=== PATIENT | female | born 1955 | race Caucasian/White ===

== ENCOUNTER → 2018-04-08 | Outpatient (CLI) | payer BC | END | disposition home or self-care (01) | LOC: PLD 13:31 → LAB SHORT 13:31 | DX: D03.71 Melanoma in situ of right lower limb, including hip (principal) | CPT/HCPCS: 88305 ==

== ENCOUNTER → 2018-04-23 | Outpatient (CLI) | payer BC | LOC: LAB SHORT 08:02 → PLD 08:02 | DX: D03.71 Melanoma in situ of right lower limb, including hip (principal) | CPT/HCPCS: 88305 ==

== ENCOUNTER → 2019-01-27 | Outpatient (CLI) | payer BC | END | disposition home or self-care (01) | LOC: LAB SHORT 08:45 → LAB 08:45 | DX: B82.9 Intestinal parasitism, unspecified (principal) | CPT/HCPCS: 87015; 87045; 87046; 87177; 87205; 87209; 87493; 87899 ==

== ENCOUNTER → 2020-01-06 | Outpatient (CLI) | payer MEDICARE | LOC: LAB SHORT 11:20 → PLD 11:20 | DX: D22.71 Melanocytic nevi of right lower limb, including hip (principal); L91.8 Other hypertrophic disorders of the skin; L81.8 Other specified disorders of pigmentation | CPT/HCPCS: 88305 ==

== ENCOUNTER → 2021-01-30 | Outpatient (CLI) | payer MEDICARE | END | disposition home or self-care (01) | LOC: PLD 12:33 → LAB SHORT 12:33 | DX: L72.0 Epidermal cyst (principal) | CPT/HCPCS: 88304 ==

== ENCOUNTER → 2021-07-25 | Outpatient (CLI) | payer MEDICARE | LOC: LAB 12:00 → LAB SHORT 12:00 | DX: A49.9 Bacterial infection, unspecified (principal); Z88.5 Allergy status to narcotic agent | CPT/HCPCS: 87070; 87077; 87147; 87186; 87205 ==

== ENCOUNTER 2022-01-22 11:50 | Day surgery (SDC) | payer MEDICARE ==
[~2022-01-22] VITALS: Ht 165.1 cm; Wt 82.4 kg
== END 2022-01-22 15:22 | disposition home or self-care (01) ==
LOC: ORSCSDS 11:50
PROVIDERS: Internal Medicine Gastroenterology
PROC: 0DBN8ZX Excision of Sigmoid Colon, Via Natural or Artificial Opening Endoscopic, Diagnostic (ICD-10-PCS; principal; 2022-01-22 13:30)
DX: Z12.11 Encounter for screening for malignant neoplasm of colon (principal); D12.5 Benign neoplasm of sigmoid colon; K64.4 Residual hemorrhoidal skin tags; Z79.899 Other long term (current) drug therapy
CPT/HCPCS: 88305; J2405; J2704; J7120

== ENCOUNTER → 2022-05-07 | Outpatient (CLI) | payer MEDICARE | END | disposition home or self-care (01) | LOC: LAB 12:35 → LAB SHORT 12:35 | DX: Z09 Encounter for follow-up examination after completed treatment for conditions other than malignant neoplasm (principal); Z86.14 Personal history of Methicillin resistant Staphylococcus aureus infection | CPT/HCPCS: 87070; 87077; 87147; 87186; 87205 ==

== ENCOUNTER 2023-11-02 23:30 | Emergency (ER) | payer MEDICARE ==
[~2023-11-02] VITALS: Ht 165.1 cm; Wt 72.6 kg
[2023-11-02 23:59] LABS: BASOPHILS ABSOLUTE AUTO 0.05 K/mm3 (0.00-0.23); BASOPHILS PERCENT AUTO 1 % (0-2); EOSINOPHILS ABSOLUTE AUTO 0.13 K/mm3 (0.00-0.68); EOSINOPHILS PERCENT AUTO 3 % (0-6); Hematocrit 34.6 % (33.0-51.0); IMMATURE GRAN ABSOLUTE AUTO 0.01 K/mm3 (0.00-0.10); IMMATURE GRAN PERCENT AUTO 0 % (0-1); LYMPHOCYTES ABSOLUTE AUTO 2.39 K/mm3 (0.84-5.20); LYMPHOCYTES PERCENT AUTO 47 % (21-46); MONOCYTES PERCENT AUTO 8 % (4-13); Mean Corpuscular HGB 29.1 pg (26.0-34.0); Mean Corpuscular HGB Conc 34.7 g/dL (31.5-36.5); Mean Corpuscular Volume 84 fL (80-100); Mean Platelet Volume 10.1 fL (9.1-12.4); NEUTROPHILS ABSOLUTE AUTO 2.11 K/mm3 (1.96-9.15); NEUTROPHILS PERCENT AUTO 41 % (41-73); Platelet Count 226 K/mm3 (150-400); RDW Coefficient Variation 12.7 % (11.7-14.2); RDW Standard Deviation 38.2 fL (35.1-46.3); Red Blood Cell Count 4.13 M/mm3 (3.80-5.20); White Blood Cell Count 5.09 K/mm3 (4.00-11.30)
[2023-11-03 00:18] LABS: Albumin, Blood 3.7 g/dL (3.4-5.0); Albumin/Globulin Ratio 1.3 (0.8-1.8); Bilirubin, Total 0.4 mg/dL (0.1-1.0); Bun/Creatinine Ratio 26.6 (12.0-20.0); Calcium, Blood 8.7 mg/dL (8.5-10.1); Creatinine, Blood 0.64 mg/dL (0.40-1.00); Globulin, Blood 2.9 g/dL (2.2-4.0); Potassium, Blood 3.1 mmol/L (3.5-5.5); Total Protein, Blood 6.6 g/dL (6.4-8.2)
[2023-11-03 01:05] LABS: Phosphorus, Blood 1.6 mg/dL (2.5-4.9)
[2023-11-03 01:32] LABS: International Normalized Ratio 0.95
[2023-11-03 02:30] VITALS: BP 151/78
== END 2023-11-03 03:49 | disposition short-term general hospital (02) ==
LOC: ER 23:30
PROVIDERS: Emergency Medicine
DX: I61.9 Nontraumatic intracerebral hemorrhage, unspecified (principal); Z88.5 Allergy status to narcotic agent
CPT/HCPCS: 70450; 71045; 80053; 83605; 83735; 84100; 85025; 85610; 85730; 93005; 93010; 96365; 96375; 99285-25; J1953; J2405; J7050

== ENCOUNTER 2023-12-17 10:01 | Observation (INO) | payer MEDICARE ==
[~2023-12-17] VITALS: Ht 167.6 cm; Wt 75.0 kg
[2023-12-17] MEDS ORDERED: GABA100 PO (10:18)
[2023-12-17] MEDS ORDERED: OXYC10ER PO (10:18)
[2023-12-17] MEDS ORDERED: ACET325 PO (10:18)
[2023-12-17 11:05] LABS: BASOPHILS ABSOLUTE AUTO 0.05 K/mm3 (0.00-0.23); BASOPHILS PERCENT AUTO 1 % (0-2); EOSINOPHILS ABSOLUTE AUTO 0.19 K/mm3 (0.00-0.68); EOSINOPHILS PERCENT AUTO 5 % (0-6); Hematocrit 29.6 % (33.0-51.0); Hemoglobin 9.4 g/dL (11.5-16.0); IMMATURE GRAN ABSOLUTE AUTO 0.01 K/mm3 (0.00-0.10); IMMATURE GRAN PERCENT AUTO 0 % (0-1); LYMPHOCYTES ABSOLUTE AUTO 0.95 K/mm3 (0.84-5.20); LYMPHOCYTES PERCENT AUTO 25 % (21-46); MONOCYTES ABSOLUTE AUTO 0.36 K/mm3 (0.16-1.47); MONOCYTES PERCENT AUTO 10 % (4-13); Mean Corpuscular HGB 29.2 pg (26.0-34.0); Mean Corpuscular HGB Conc 31.8 g/dL (31.5-36.5); Mean Corpuscular Volume 92 fL (80-100); Mean Platelet Volume 9.4 fL (9.1-12.4); NEUTROPHILS ABSOLUTE AUTO 2.24 K/mm3 (1.96-9.15); NEUTROPHILS PERCENT AUTO 59 % (41-73); Platelet Count 221 K/mm3 (150-400); RDW Coefficient Variation 13.7 % (11.7-14.2); RDW Standard Deviation 46.3 fL (35.1-46.3); Red Blood Cell Count 3.22 M/mm3 (3.80-5.20)
[2023-12-17 11:13] LABS: Albumin, Blood 3.1 g/dL (3.4-5.0); Bilirubin, Total 0.3 mg/dL (0.1-1.0); Bun/Creatinine Ratio 10.8 (12.0-20.0); Calcium, Blood 8.9 mg/dL (8.5-10.1); Creatinine, Blood 0.74 mg/dL (0.40-1.00); Globulin, Blood 3.1 g/dL (2.2-4.0); Potassium, Blood 3.7 mmol/L (3.5-5.5); Total Protein, Blood 6.2 g/dL (6.4-8.2)
[2023-12-17] MEDS ORDERED: MIRALAX11910 PO (14:23)
[2023-12-17] MEDS ORDERED: LIDOCAINE1 EACH TOP (14:23)
[2023-12-17] MEDS ORDERED: MELA3 PO (14:24)
[2023-12-17] MEDS ORDERED: OXYC5 PO (14:27)
[2023-12-17] MEDS ORDERED: QUET25 PO (14:28)
[2023-12-17] MEDS ORDERED: DOCUZEN 8.6-501 EACH PO (15:48)
[2023-12-17] MEDS ORDERED: ONDA4 PO (15:52)
--- NOTE | 2023-12-17 15:59 | NUR ---
CALLED DR FIERRO- PT BEING ADMITTED FOR CP. REPORT RECIEVED FROM ED VIA TELEPHONE, PT GETTING THE FIRST HALF OF HER STRESS TEST NOW THE SECOND HALF WILL BE TOMORROW MORNING. CALLED DR FIERRO PRIOR TO PT ARRIVING ON MED FLOOR TROPONIN RESULTS WERE CRITICAL AT 150 AND THEN 153, PT HAS NO TELE ORDER AT THIS TIME. RECIEVED ORDER FOR TELE AND 5000 SQ HEPARIN Q12 TO START TOMORROW AM.
--- NOTE | 2023-12-17 18:21 | NUR ---
CALLED DR FIERRO- PT HAS A POLST FORM AND ADVANCED DIRECTIVE (PER PT STATEMENT) SHE STATES SHE IS SUPPOSED TO BE A DNR. PT STATES IF SHE DIES THEN SHE IS GONE, DON'T TRY TO BRING HER BACK. SPOKE TO DR FIERRO AND RECIEVED A VERBAL ORDER TO CHANGE CODE STATUS TO DNR.
--- NOTE | 2023-12-17 18:33 | NUR ---
CALLED PALLIATIVE CARE- PT STATES SHE HAS A POLST FORM ON FILE WITH THE STATE, NONE IS IN HER FILE. PALLIATIVE CARE WILL CALL TO GET INFO FROM THE POLST REGISTRY. PT DOES HAVE AN ADVANCED DIRECTIVE, WITH A COPY ON FILE.
--- NOTE | 2023-12-17 18:49 | NUR ---
Vera, palliative care nurse faxed POLST request to [place] [employer] [facility].
[2023-12-17 19:37] VITALS: BP 138/66
[2023-12-18 02:25] LABS: BASOPHILS ABSOLUTE AUTO 0.06 K/mm3 (0.00-0.23); BASOPHILS PERCENT AUTO 2 % (0-2); EOSINOPHILS ABSOLUTE AUTO 0.21 K/mm3 (0.00-0.68); EOSINOPHILS PERCENT AUTO 6 % (0-6); Hematocrit 28.2 % (33.0-51.0); Hemoglobin 9.2 g/dL (11.5-16.0); IMMATURE GRAN ABSOLUTE AUTO 0.03 K/mm3 (0.00-0.10); IMMATURE GRAN PERCENT AUTO 1 % (0-1); LYMPHOCYTES ABSOLUTE AUTO 1.25 K/mm3 (0.84-5.20); LYMPHOCYTES PERCENT AUTO 36 % (21-46); MONOCYTES ABSOLUTE AUTO 0.38 K/mm3 (0.16-1.47); MONOCYTES PERCENT AUTO 11 % (4-13); Mean Corpuscular HGB 29.3 pg (26.0-34.0); Mean Corpuscular HGB Conc 32.6 g/dL (31.5-36.5); Mean Corpuscular Volume 90 fL (80-100); Mean Platelet Volume 9.3 fL (9.1-12.4); NEUTROPHILS ABSOLUTE AUTO 1.55 K/mm3 (1.96-9.15); NEUTROPHILS PERCENT AUTO 45 % (41-73); Platelet Count 231 K/mm3 (150-400); RDW Coefficient Variation 13.6 % (11.7-14.2); RDW Standard Deviation 44.9 fL (35.1-46.3); Red Blood Cell Count 3.14 M/mm3 (3.80-5.20); White Blood Cell Count 3.48 K/mm3 (4.00-11.30)
[2023-12-18 02:46] LABS: Albumin, Blood 2.6 g/dL (3.4-5.0); Anion Gap 4 mmol/L (6-16); Blood Urea Nitrogen 8 mg/dL (8-24); CO2, Blood 28 mmol/L (21-32); Calcium, Blood 8.2 mg/dL (8.5-10.1); Chloride, Blood 116 mmol/L (98-108); Glomerular Filtration Rate 80 (60-); Glucose, Blood 97 mg/dL (70-99); Magnesium, Blood 2.1 mg/dL (1.6-2.4); Phosphorus, Blood 4.1 mg/dL (2.5-4.9); Potassium, Blood 3.4 mmol/L (3.5-5.5); Sodium, Blood 148 mmol/L (136-145)
[2023-12-18 02:47] VITALS: BP 141/71
--- NOTE | 2023-12-18 02:54 | NUR ---
CALLED HOSPITALIST PATIENT WAS WOKEN UP TO GET HER LABS DRAWN FOR TROPONINS AND BECAME AGITATED. SHE BECAME IMPULSIVE AND ATTEMPTED TO EXIT THE BED FREQUENTLY. SHE IS A HIGH FALL RISK DUE TO LEFT SIDED WEAKNESS. SHE WAS NOT REDIRECTABLE. I DID CALL THE HOSPITALIST. NEW ORDERS IN EMAR
[2023-12-18] MEDS ORDERED: BISA10S PR (04:15)
[2023-12-18] MEDS ORDERED: NARCAN4 M1 (04:16)
--- NOTE | 2023-12-18 05:11 | NUR ---
SHIFT SUMMARY: PATIENT RESTING IN BED, HELMENT IN PLACE WHEN UP AMBULATING, SBA WITH FWW TO BATHROOM, PATIENT IMPULSIVE AND EMOTIONAL THIS SHIFT, PLAN IS FOR STRESS TEST PART TWO TODAY, NPO AT MIDNIGHT, MEDICATED FOR ANXIETY THIS SHIFT SEE EMAR, PATIENT CURRENTLY RESTING COMFOTABLY IN BED AT THIS TIME WITH EYES CLOSED.
[2023-12-18 07:27] VITALS: BP 126/71
--- NOTE | 2023-12-18 17:44 | NUR ---
SHIFT SUMMARY PT AXO TO SELF AND PLACE EMOTIONALLY LABILE, CRYING AT TIMES. THE SHIFT GOES ON PT, MAKING ODD STATEMENTS AND HAVING SOME DELUSIONS. FOR EXAMPLE, PT STATED THAT SHE WANTED TO AMBULATE WITH HER AND REQUESTED THAT STAFF NOT ASSIST SO THAT THEY COULD "STOP BY [facility] FOR A HAMBERGER." THIS NURSE EDUCATED PATIENT ON PATIENT SAFETY AND ATTEMPTED TO REORIENT. PT FIXATED ON EVENTS FROM THE NIGHT BEFORE STATING THAT THE NURSES REFUSED TO "GIVE PAIN MEDICATIONS." THIS NURSE MEDICATED PT FOR HEADACHE PER EMAR. THIS NURSE ALSO AMBULATED WITH PATIENT AROUND THE WHOLE UNIT X2. HELMET ON FOR AMBULATION, FWW AND GB. HEMIWALKER NOT AVAILABLE FOR PATIENT. PT UP TO CHAIR AWAITING DINNER TRAY AT THIS TIME. CHAIR ALARM ON. CALL LIGHT WITHIN REACH. PT AND OT EVALUATED, SEE NOTE. VSS
[2023-12-18 17:57] VITALS: BP 148/86
--- NOTE | 2023-12-18 18:39 | NUR ---
"Spiritual Care Visit | Pt. Request. Pt. is sitting up and finishing dinner when she welcomes my visit. Pt. is pleasant. Facilitated a life review where Pt. verbalizes her recent stroke and brain surgery. Listen with empathy, interest and a calming presence. Pt. displays evidence of being moved spiritually about God's will in her life. Consider other concepts of matthew and belief. Prayed with Pt. Pt. verbalized gratitude for the spiritual care visit and welcomed this zinc skimmer to visit again."
[2023-12-18 20:01] VITALS: BP 143/75
[2023-12-19 02:59] VITALS: BP 135/65
--- NOTE | 2023-12-19 03:41 | NUR ---
SHIFT SUMMARY: PT A&O X 2, PT WOKE IN THE NIGHT CONFUSED. PT SEEMED TO THINK IT WAS MORNING AND WAS ASKING TO GET UP AND MEDITATE WHEN SHE WOKE TO USE THE BATHROOM. PT WAS REMINDED BY ENVIRONMENTAL PROPERTY ASSESSOR THAT IT WAS NOT MORNING AND PT BECAME ARGUEMENTATIVE STATING THAT ENVIRONMENTAL PROPERTY ASSESSOR WAS REFUSING TO ALLOW HER TO PRACTICE HER SABIANIST BELIEFS. PT WAS ASSURED THAT STAFF WERE NOT DOING THAT AND TOLD THAT SHE COULD PRAY SAFELY IN HER BED INSTEAD OF THE BATHROOM. PT WAS ABLE TO SIT ON THE EDGE OF THE BED FOR AWHILE. PT BACK HURT SO SHE WAS MEDICATED WITH OXY AND GIVEN SERAQUEL TO HELP RELAX HER. PT SLEPT FOLLOWING THAT. 12/19/23 DAVID SÁNCHEZ RN
[2023-12-19 05:52] LABS: BASOPHILS ABSOLUTE AUTO 0.03 K/mm3 (0.00-0.23); BASOPHILS PERCENT AUTO 1 % (0-2); EOSINOPHILS ABSOLUTE AUTO 0.16 K/mm3 (0.00-0.68); EOSINOPHILS PERCENT AUTO 6 % (0-6); Hematocrit 28.7 % (33.0-51.0); Hemoglobin 8.9 g/dL (11.5-16.0); IMMATURE GRAN ABSOLUTE AUTO 0.01 K/mm3 (0.00-0.10); IMMATURE GRAN PERCENT AUTO 0 % (0-1); LYMPHOCYTES ABSOLUTE AUTO 0.77 K/mm3 (0.84-5.20); LYMPHOCYTES PERCENT AUTO 27 % (21-46); MONOCYTES ABSOLUTE AUTO 0.26 K/mm3 (0.16-1.47); MONOCYTES PERCENT AUTO 9 % (4-13); Mean Corpuscular HGB 28.6 pg (26.0-34.0); Mean Corpuscular Volume 92 fL (80-100); Mean Platelet Volume 9.2 fL (9.1-12.4); NEUTROPHILS ABSOLUTE AUTO 1.67 K/mm3 (1.96-9.15); NEUTROPHILS PERCENT AUTO 58 % (41-73); Platelet Count 204 K/mm3 (150-400); RDW Coefficient Variation 13.6 % (11.7-14.2); Red Blood Cell Count 3.11 M/mm3 (3.80-5.20)
[2023-12-19 06:16] LABS: Albumin, Blood 2.7 g/dL (3.4-5.0); Anion Gap 1 mmol/L (6-16); Blood Urea Nitrogen 10 mg/dL (8-24); Bun/Creatinine Ratio 12.9 (12.0-20.0); CO2, Blood 28 mmol/L (21-32); Calcium, Blood 8.8 mg/dL (8.5-10.1); Chloride, Blood 116 mmol/L (98-108); Creatinine, Blood 0.78 mg/dL (0.40-1.00); Glomerular Filtration Rate 82 (60-); Glucose, Blood 102 mg/dL (70-99); Phosphorus, Blood 3.9 mg/dL (2.5-4.9); Sodium, Blood 145 mmol/L (136-145)
[2023-12-19 07:36] VITALS: BP 123/71
[2023-12-19 13:37] LABS: SARS-Cov-2 (COVID-19) PCR, MMC NEGATIVE (NEGATIVE)
--- NOTE | 2023-12-19 15:32 | NUR ---
DISCHARGE NOTE- PT WAS DISCHARGED BACK TO [facility]. PT WAS TAKEN VIA WC TRANSPORT. IV AND TELE DC'D PRIOR TO DISCHARGE. PT HAD NO S&S OF DISTRESS AT THE TIME OF DISCHARGE.
--- NOTE | 2023-12-19 16:06 | NUR ---
Supportive visit Delayed Entry morning of 12/19/23 Shavon is sitting up in chair with call light in hand. Call light on. She is requesting to go back to bed. She reports 2/10 headache is tolerable. She is fatigued from sitting in chair. After MARITIME ENGINEER came to room, pt decided to stay up in chair until after breakfast. Life review of the last couple of months had. 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 This PC RN and pt discussed what her new baseline may look like and that it will take time to heal. Will remain available.
--- NOTE | 2023-12-19 16:30 | NUR ---
CALLED SHALONDA PAZ AND GAVE REPORT TO NELIDA
== END 2023-12-19 15:26 | disposition hospice, inpatient (51) ==
LOC: ER 10:01 → MEDS 10:02
PROVIDERS: Emergency Medicine; ADMIT Family Medicine
DX: R07.89 Other chest pain (principal); M19.90 Unspecified osteoarthritis, unspecified site; R79.89 Other specified abnormal findings of blood chemistry; F32.9 Major depressive disorder, single episode, unspecified; R45.1 Restlessness and agitation; I48.0 Paroxysmal atrial fibrillation; Z88.5 Allergy status to narcotic agent
CPT/HCPCS: 36415; 71045; 78452; 80053; 80069; 83735; 83880; 84484; 85025; 93005; 93010; 93017; 93306; 96372; 96374; 97112; 97162; 97165; 97530; 99285-25; A9270; A9500; G0378; J0706; J1644; J2060; J2785; U0002

== ENCOUNTER 2023-12-21 09:24 | Emergency (ER) | payer MEDICARE ==
[~2023-12-21] VITALS: Ht 167.6 cm; Wt 77.1 kg
[~2023-12-21 09:24] MED LIST: ACET325 PO; BISA10S PR; DOCUZEN 8.6-501 EACH PO; GABA100 PO; LIDOCAINE1 EACH TOP; MELA3 PO; MIRALAX11910 PO; NARCAN4 M1; ONDA4 PO; OXYC10ER PO; OXYC5 PO; QUET25 PO
[2023-12-21 11:18] LABS: BASOPHILS ABSOLUTE AUTO 0.04 K/mm3 (0.00-0.23); BASOPHILS PERCENT AUTO 1 % (0-2); EOSINOPHILS ABSOLUTE AUTO 0.15 K/mm3 (0.00-0.68); EOSINOPHILS PERCENT AUTO 4 % (0-6); Hematocrit 32.6 % (33.0-51.0); Hemoglobin 10.7 g/dL (11.5-16.0); IMMATURE GRAN ABSOLUTE AUTO 0.01 K/mm3 (0.00-0.10); IMMATURE GRAN PERCENT AUTO 0 % (0-1); LYMPHOCYTES ABSOLUTE AUTO 0.94 K/mm3 (0.84-5.20); LYMPHOCYTES PERCENT AUTO 24 % (21-46); MONOCYTES ABSOLUTE AUTO 0.34 K/mm3 (0.16-1.47); MONOCYTES PERCENT AUTO 9 % (4-13); Mean Corpuscular HGB 29.3 pg (26.0-34.0); Mean Corpuscular HGB Conc 32.8 g/dL (31.5-36.5); Mean Corpuscular Volume 89 fL (80-100); NEUTROPHILS ABSOLUTE AUTO 2.51 K/mm3 (1.96-9.15); NEUTROPHILS PERCENT AUTO 63 % (41-73); Platelet Count 232 K/mm3 (150-400); RDW Coefficient Variation 13.3 % (11.7-14.2); RDW Standard Deviation 43.5 fL (35.1-46.3); Red Blood Cell Count 3.65 M/mm3 (3.80-5.20); White Blood Cell Count 3.99 K/mm3 (4.00-11.30)
[2023-12-21 11:35] LABS: Albumin, Blood 3.2 g/dL (3.4-5.0); Bilirubin, Total 0.4 mg/dL (0.1-1.0); Bun/Creatinine Ratio 10.4 (12.0-20.0); Creatinine, Blood 0.77 mg/dL (0.40-1.00); Globulin, Blood 3.2 g/dL (2.2-4.0); Potassium, Blood 3.7 mmol/L (3.5-5.5); Total Protein, Blood 6.4 g/dL (6.4-8.2)
[2023-12-21 14:00] VITALS: BP 102/63
== END 2023-12-21 14:12 | disposition home or self-care (01) ==
LOC: ER 09:24
PROVIDERS: Emergency Medicine
DX: R51.9 Headache, unspecified (principal); R00.2 Palpitations; Z88.5 Allergy status to narcotic agent; Z79.899 Other long term (current) drug therapy; I48.91 Unspecified atrial fibrillation
CPT/HCPCS: 70450; 80053; 84484; 85025; 93005; 93010; 99284-25

== ENCOUNTER 2024-05-07 19:23 | Emergency (ER) | payer MEDICARE ==
[~2024-05-07] VITALS: Ht 167.6 cm; Wt 61.2 kg
[2024-05-07 19:41] LABS: BASOPHILS ABSOLUTE AUTO 0.05 K/mm3 (0.00-0.23); BASOPHILS PERCENT AUTO 1 % (0-2); EOSINOPHILS ABSOLUTE AUTO 0.06 K/mm3 (0.00-0.68); EOSINOPHILS PERCENT AUTO 1 % (0-6); Hematocrit 34.9 % (33.0-51.0); Hemoglobin 11.7 g/dL (11.5-16.0); IMMATURE GRAN PERCENT AUTO 0 % (0-1); LYMPHOCYTES ABSOLUTE AUTO 1.49 K/mm3 (0.84-5.20); LYMPHOCYTES PERCENT AUTO 35 % (21-46); MONOCYTES ABSOLUTE AUTO 0.36 K/mm3 (0.16-1.47); MONOCYTES PERCENT AUTO 9 % (4-13); Mean Corpuscular HGB 29.1 pg (26.0-34.0); Mean Corpuscular HGB Conc 33.5 g/dL (31.5-36.5); Mean Corpuscular Volume 87 fL (80-100); Mean Platelet Volume 9.6 fL (9.1-12.4); NEUTROPHILS ABSOLUTE AUTO 2.27 K/mm3 (1.96-9.15); NEUTROPHILS PERCENT AUTO 54 % (41-73); Platelet Count 227 K/mm3 (150-400); RDW Coefficient Variation 13.1 % (11.7-14.2); RDW Standard Deviation 41.3 fL (35.1-46.3); Red Blood Cell Count 4.02 M/mm3 (3.80-5.20); White Blood Cell Count 4.23 K/mm3 (4.00-11.30)
[2024-05-07 20:04] LABS: Albumin, Blood 3.6 g/dL (3.4-5.0); Albumin/Globulin Ratio 1.1 (0.8-1.8); Bilirubin, Total 0.5 mg/dL (0.1-1.0); Bun/Creatinine Ratio 25.1 (12.0-20.0); Calcium, Blood 8.8 mg/dL (8.5-10.1); Creatinine, Blood 0.72 mg/dL (0.40-1.00); Globulin, Blood 3.2 g/dL (2.2-4.0); Potassium, Blood 3.9 mmol/L (3.5-5.5); Total Protein, Blood 6.8 g/dL (6.4-8.2)
[2024-05-07] MEDS ORDERED: Morphine Sulfate 4 MG/1 ML Injection IV ONE (20:10)
[2024-05-07] MEDS ORDERED: Metoclopramide HCl 5MG / ML 2ML Vial IV ONE (20:10)
[2024-05-07 21:15] VITALS: BP 128/63
== END 2024-05-07 21:30 | disposition home or self-care (01) ==
LOC: ER 19:23
PROVIDERS: Emergency Medicine
DX: R51.9 Headache, unspecified (principal); Z88.5 Allergy status to narcotic agent; Z79.899 Other long term (current) drug therapy; I48.91 Unspecified atrial fibrillation
CPT/HCPCS: 70450; 80053; 85025; 93005; 93010; 96374; 96375; 99284-25; J2270; J2765

== ENCOUNTER 2024-08-23 12:50 | Emergency (ER) | payer MEDICARE ==
[~2024-08-23] VITALS: Ht 162.6 cm; Wt 61.2 kg
[2024-08-23] MEDS ORDERED: propofoL 100 ML IV ONE ×2 (13:02→17:46)
[2024-08-23 13:15] LABS: Base Excess Venous -17.6 mmol/L; Bicarbonate Venous 12.1 mmol/L (24.0-30.0); PCO2 Venous 39.3 mmHg (38-42)
[2024-08-23 13:27] LABS: BASOPHILS ABSOLUTE AUTO 0.11 K/mm3 (0.00-0.23); BASOPHILS PERCENT AUTO 1 % (0-2); EOSINOPHILS ABSOLUTE AUTO 0.11 K/mm3 (0.00-0.68); EOSINOPHILS PERCENT AUTO 1 % (0-6); Hematocrit 39.6 % (33.0-51.0); Hemoglobin 12.8 g/dL (11.5-16.0); IMMATURE GRAN ABSOLUTE AUTO 0.14 K/mm3 (0.00-0.10); IMMATURE GRAN PERCENT AUTO 2 % (0-1); LYMPHOCYTES ABSOLUTE AUTO 3.72 K/mm3 (0.84-5.20); LYMPHOCYTES PERCENT AUTO 39 % (21-46); MONOCYTES ABSOLUTE AUTO 0.94 K/mm3 (0.16-1.47); MONOCYTES PERCENT AUTO 10 % (4-13); Mean Corpuscular HGB 28.7 pg (26.0-34.0); Mean Corpuscular HGB Conc 32.3 g/dL (31.5-36.5); Mean Corpuscular Volume 89 fL (80-100); Mean Platelet Volume 9.9 fL (9.1-12.4); NEUTROPHILS ABSOLUTE AUTO 4.56 K/mm3 (1.96-9.15); NEUTROPHILS PERCENT AUTO 48 % (41-73); Platelet Count 304 K/mm3 (150-400); RDW Coefficient Variation 12.7 % (11.7-14.2); RDW Standard Deviation 41.1 fL (35.1-46.3); Red Blood Cell Count 4.46 M/mm3 (3.80-5.20); White Blood Cell Count 9.58 K/mm3 (4.00-11.30)
[2024-08-23] MEDS ORDERED: NS 1,000 ML IV SCH ×2 (13:35→19:55)
[2024-08-23 13:39] LABS: International Normalized Ratio 0.93
[2024-08-23 13:44] LABS: Albumin, Blood 4.1 g/dL (3.4-5.0); Albumin/Globulin Ratio 1.2 (0.8-1.8); Bilirubin, Total 0.5 mg/dL (0.1-1.0); Bun/Creatinine Ratio 19.4 (12.0-20.0); Calcium, Blood 9.7 mg/dL (8.5-10.1); Creatinine, Blood 0.93 mg/dL (0.40-1.00); Globulin, Blood 3.3 g/dL (2.2-4.0); Potassium, Blood 3.8 mmol/L (3.5-5.5); Total Protein, Blood 7.4 g/dL (6.4-8.2)
[2024-08-23 14:03] LABS: Source, Urine Straight Cath
[2024-08-23 14:19] LABS: Bilirubin, Urine Neg (Neg); Blood, Urine 1+ (Neg); Color, Urine Yellow (P-Yellow); Glucose Qualitative, Urine Neg (Neg); Ketones, Urine Neg (Neg); Leukocyte Esterase, Urine Neg (Neg); Nitrite, Urine Neg (Neg); Protein, Urine 2+ (Neg); Urobilinogen, Urine NORM (Normal)
[2024-08-23] MEDS ORDERED: Midazolam HCL 50 MG in NS 40 ML IV PRN (14:25)
[2024-08-23 14:33] LABS: U Amphetamine Screen Not Detected; U Barbituate Screen Not Detected; U Benzodiazapine Screen Not Detected; U Buprenorphine Screen Not Detected; U Cannabinoids Screen Not Detected; U Cocaine Screen Not Detected; U Methadone Screen Not Detected; U Methamphetamine Screen Not Detected; U Opiates Screen Not Detected; U Oxycodone Screen Not Detected; U Phencyclidine Screen Not Detected
[2024-08-23 14:47] LABS: Appearance, Urine Hazy (Clear); Bacteria Mod /hpf; Mucus Light (0-Heavy); Red Blood Cells, Urine 0-2 /hpf (0-2); Squamous Epithelial Cells Rare /hpf (Few); White Blood Cells, Urine 0-2 /hpf (0-5)
[2024-08-23] MEDS ORDERED: Midazolam HCL 1 MG/ML 5MLVIAL ONE (16:03)
[2024-08-23] MEDS ORDERED: NS 1,000 ML IV ONE ×2 (16:45→19:23)
[2024-08-23] MEDS ORDERED: fentaNYL citrate 1,000 MCG in NS 80 ML IV SCH (17:15)
[2024-08-23] MEDS ORDERED: levETIRAcetam 1,500 MG in NS 100 ML IV ONE (17:25)
[2024-08-23 17:29] LABS: Source, Urine Foley catheter
[2024-08-23] MEDS ORDERED: levETIRAcetam 3,000 MG in NS 100 ML IV SCH (17:40)
[2024-08-23 17:41] LABS: Bilirubin, Urine Neg (Neg); Blood, Urine Neg (Neg); Color, Urine Yellow (P-Yellow); Glucose Qualitative, Urine Neg (Neg); Ketones, Urine Neg (Neg); Leukocyte Esterase, Urine Neg (Neg); Nitrite, Urine Neg (Neg); Protein, Urine 1+ (Neg); Urobilinogen, Urine NORM (Normal); pH, Urine 6.5 (5.0-8.0)
[2024-08-23] MEDS ORDERED: propofoL 100 ML IV SCH (17:55)
[2024-08-23 18:28] LABS: Appearance, Urine Clear (Clear)
[2024-08-23 19:23] VITALS: BP 101/67
[2024-08-23] MEDS ORDERED: Midazolam HCl 1MG / ML 2ML Vial XX ONE (21:02)
[2024-08-23] MEDS ORDERED: Rocuronium Bromide 10 MG/ML 5ML Injection IV ONE (21:02)
[2024-08-23] MEDS ORDERED: Etomidate 2MG / ML 10ML Vial XX ONE (21:02)
== END 2024-08-23 19:48 | disposition short-term general hospital (02) ==
LOC: ER 12:50
PROVIDERS: Student in an Organized Health Care Education/Training Program
DX: I62.9 Nontraumatic intracranial hemorrhage, unspecified (principal); I48.91 Unspecified atrial fibrillation; Z88.5 Allergy status to narcotic agent; Z79.899 Other long term (current) drug therapy
CPT/HCPCS: 31500; 51702; 70450; 70496; 70498; 71045; 80053; 81001; 82803; 82947; 83605; 84484; 85025; 85610; 85730; 93005; 93010; 94002; 96365-59; 96366-59; 96368; 99291-25; J1953; J2250; J2704; J3010; J7030; J7050; Q9967

== ENCOUNTER 2024-09-29 13:32 | Emergency (ER) | payer MEDICARE ==
[~2024-09-29] VITALS: Ht 165.1 cm; Wt 73.5 kg
[2024-09-29 14:12] LABS: Source, Urine Clean Catch
[2024-09-29 14:25] LABS: BASOPHILS ABSOLUTE AUTO 0.04 K/mm3 (0.00-0.23); BASOPHILS PERCENT AUTO 1 % (0-2); EOSINOPHILS ABSOLUTE AUTO 0.06 K/mm3 (0.00-0.68); EOSINOPHILS PERCENT AUTO 1 % (0-6); Hematocrit 34.5 % (33.0-51.0); Hemoglobin 11.8 g/dL (11.5-16.0); IMMATURE GRAN ABSOLUTE AUTO 0.01 K/mm3 (0.00-0.10); IMMATURE GRAN PERCENT AUTO 0 % (0-1); LYMPHOCYTES ABSOLUTE AUTO 1.42 K/mm3 (0.84-5.20); LYMPHOCYTES PERCENT AUTO 31 % (21-46); MONOCYTES ABSOLUTE AUTO 0.43 K/mm3 (0.16-1.47); MONOCYTES PERCENT AUTO 9 % (4-13); Mean Corpuscular HGB 29.7 pg (26.0-34.0); Mean Corpuscular HGB Conc 34.2 g/dL (31.5-36.5); Mean Corpuscular Volume 87 fL (80-100); Mean Platelet Volume 8.9 fL (9.1-12.4); NEUTROPHILS ABSOLUTE AUTO 2.61 K/mm3 (1.96-9.15); NEUTROPHILS PERCENT AUTO 57 % (41-73); Platelet Count 219 K/mm3 (150-400); RDW Coefficient Variation 12.9 % (11.7-14.2); Red Blood Cell Count 3.97 M/mm3 (3.80-5.20); White Blood Cell Count 4.57 K/mm3 (4.00-11.30)
[2024-09-29 14:26] LABS: Bilirubin, Urine Neg (Neg); Blood, Urine Neg (Neg); Glucose Qualitative, Urine Neg (Neg); Ketones, Urine Neg (Neg); Leukocyte Esterase, Urine 1+ (Neg); Nitrite, Urine Neg (Neg); Protein, Urine 1+ (Neg); Urobilinogen, Urine NORM (Normal)
[2024-09-29 14:36] LABS: Albumin, Blood 3.8 g/dL (3.4-5.0); Albumin/Globulin Ratio 1.2 (0.8-1.8); Bilirubin, Total 0.5 mg/dL (0.1-1.0); Calcium, Blood 9.7 mg/dL (8.5-10.1); Creatinine, Blood 0.77 mg/dL (0.40-1.00); Globulin, Blood 3.3 g/dL (2.2-4.0); Potassium, Blood 4.1 mmol/L (3.5-5.5); Total Protein, Blood 7.1 g/dL (6.4-8.2)
[2024-09-29 14:54] LABS: Amorphous Light (0-Heavy); Appearance, Urine Clear (Clear); Bacteria Few /hpf; Color, Urine Yellow (P-Yellow); Granular Casts 0-2 /lpf (0); Mucus Light (0-Heavy); Red Blood Cells, Urine Not Seen /hpf (0-2); Squamous Epithelial Cells Few /hpf (Few); White Blood Cells, Urine 0-2 /hpf (0-5)
[2024-09-29 17:00] VITALS: BP 131/78
== END 2024-09-29 17:49 | disposition home or self-care (01) ==
LOC: ER 13:32
PROVIDERS: Emergency Medicine
DX: R10.31 Right lower quadrant pain (principal); I48.91 Unspecified atrial fibrillation; Z98.890 Other specified postprocedural states; Z86.73 Personal history of transient ischemic attack (TIA), and cerebral infarction without residual deficits; Z88.5 Allergy status to narcotic agent; Z79.899 Other long term (current) drug therapy
CPT/HCPCS: 74177; 80053; 81001; 83690; 85025; 99284-25; Q9967

== ENCOUNTER 2024-12-31 14:59 | Emergency (ER) | payer MEDICARE ==
[~2024-12-31] VITALS: Ht 165.1 cm; Wt 80.3 kg
[2024-12-31 15:09] VITALS: BP 124/65
[2024-12-31 15:35] LABS: BASOPHILS ABSOLUTE AUTO 0.04 K/mm3 (0.00-0.23); BASOPHILS PERCENT AUTO 1 % (0-2); EOSINOPHILS ABSOLUTE AUTO 0.04 K/mm3 (0.00-0.68); EOSINOPHILS PERCENT AUTO 1 % (0-6); Hematocrit 35.4 % (33.0-51.0); Hemoglobin 12.3 g/dL (11.5-16.0); IMMATURE GRAN ABSOLUTE AUTO 0.01 K/mm3 (0.00-0.10); IMMATURE GRAN PERCENT AUTO 0 % (0-1); LYMPHOCYTES ABSOLUTE AUTO 1.08 K/mm3 (0.84-5.20); LYMPHOCYTES PERCENT AUTO 24 % (21-46); MONOCYTES ABSOLUTE AUTO 0.29 K/mm3 (0.16-1.47); MONOCYTES PERCENT AUTO 7 % (4-13); Mean Corpuscular HGB 29.8 pg (26.0-34.0); Mean Corpuscular HGB Conc 34.7 g/dL (31.5-36.5); Mean Corpuscular Volume 86 fL (80-100); Mean Platelet Volume 9.2 fL (9.1-12.4); NEUTROPHILS ABSOLUTE AUTO 2.98 K/mm3 (1.96-9.15); NEUTROPHILS PERCENT AUTO 67 % (41-73); Platelet Count 180 K/mm3 (150-400); RDW Coefficient Variation 12.8 % (11.7-14.2); RDW Standard Deviation 39.8 fL (35.1-46.3); Red Blood Cell Count 4.13 M/mm3 (3.80-5.20); White Blood Cell Count 4.44 K/mm3 (4.00-11.30)
[2024-12-31 15:52] LABS: Albumin/Globulin Ratio 1.2 (0.8-1.8); Bilirubin, Total 0.4 mg/dL (0.1-1.0); Bun/Creatinine Ratio 20.2 (12.0-20.0); Calcium, Blood 9.3 mg/dL (8.5-10.1); Creatinine, Blood 0.84 mg/dL (0.40-1.00); Globulin, Blood 3.2 g/dL (2.2-4.0); Total Protein, Blood 7.2 g/dL (6.4-8.2)
== END 2024-12-31 17:44 | disposition home or self-care (01) ==
LOC: ER 14:59
PROVIDERS: Emergency Medicine
DX: R42 Dizziness and giddiness (principal); I48.91 Unspecified atrial fibrillation; Z88.5 Allergy status to narcotic agent; Z79.52 Long term (current) use of systemic steroids; Z79.83 Long term (current) use of bisphosphonates; Z79.891 Long term (current) use of opiate analgesic; Z79.1 Long term (current) use of non-steroidal anti-inflammatories (NSAID); Z79.899 Other long term (current) drug therapy
CPT/HCPCS: 70450; 80053; 82947; 85025; 93005; 93010; 99284-25

== ENCOUNTER → 2025-01-04 | Outpatient (CLI) | payer MEDICARE | END | disposition home or self-care (01) | LOC: LAB SHORT 15:56 → LAB 15:56 | DX: R30.0 Dysuria (principal) | CPT/HCPCS: 87086 ==

== ENCOUNTER 2025-03-04 10:18 | Emergency (ER) | payer MEDICARE ==
[~2025-03-04] VITALS: Ht 165.1 cm; Wt 82.1 kg
[2025-03-04] MEDS ORDERED: Prochlorperazine Edisylate 10 mg Vial IV ONE (10:55)
[2025-03-04] MEDS ORDERED: DiphenhydrAMINE HCl 50 MG/ML 1ML Vial IV ONE (10:55)
[2025-03-04] MEDS ORDERED: NS 1,000 ML IV SCH (10:55)
[2025-03-04 11:14] LABS: BASOPHILS ABSOLUTE AUTO 0.03 K/mm3 (0.00-0.23); BASOPHILS PERCENT AUTO 1 % (0-2); EOSINOPHILS ABSOLUTE AUTO 0.07 K/mm3 (0.00-0.68); EOSINOPHILS PERCENT AUTO 2 % (0-6); Hematocrit 34.7 % (33.0-51.0); IMMATURE GRAN ABSOLUTE AUTO 0.01 K/mm3 (0.00-0.10); IMMATURE GRAN PERCENT AUTO 0 % (0-1); LYMPHOCYTES ABSOLUTE AUTO 1.03 K/mm3 (0.84-5.20); LYMPHOCYTES PERCENT AUTO 31 % (21-46); MONOCYTES ABSOLUTE AUTO 0.26 K/mm3 (0.16-1.47); MONOCYTES PERCENT AUTO 8 % (4-13); Mean Corpuscular HGB 30.2 pg (26.0-34.0); Mean Corpuscular HGB Conc 34.6 g/dL (31.5-36.5); Mean Corpuscular Volume 87 fL (80-100); NEUTROPHILS ABSOLUTE AUTO 1.88 K/mm3 (1.96-9.15); NEUTROPHILS PERCENT AUTO 57 % (41-73); Platelet Count 176 K/mm3 (150-400); RDW Coefficient Variation 12.5 % (11.7-14.2); RDW Standard Deviation 39.8 fL (35.1-46.3); Red Blood Cell Count 3.97 M/mm3 (3.80-5.20); White Blood Cell Count 3.28 K/mm3 (4.00-11.30)
[2025-03-04 11:36] LABS: International Normalized Ratio 0.92; Prothrombin Time Results 9.9 Sec (9.7-11.5)
[2025-03-04 11:48] LABS: Albumin, Blood 3.8 g/dL (3.4-5.0); Albumin/Globulin Ratio 1.3 (0.8-1.8); Bilirubin, Total 0.4 mg/dL (0.1-1.0); Calcium, Blood 8.7 mg/dL (8.5-10.1); Creatinine, Blood 0.91 mg/dL (0.40-1.00); Globulin, Blood 2.9 g/dL (2.2-4.0); Potassium, Blood 4.1 mmol/L (3.5-5.5); Total Protein, Blood 6.7 g/dL (6.4-8.2)
[2025-03-04 15:15] VITALS: BP 116/60
== END 2025-03-04 15:16 | disposition home or self-care (01) ==
LOC: ER 10:18
PROVIDERS: Emergency Medicine; Student in an Organized Health Care Education/Training Program
DX: R51.9 Headache, unspecified (principal); Z88.5 Allergy status to narcotic agent; Z79.899 Other long term (current) drug therapy; I48.91 Unspecified atrial fibrillation
CPT/HCPCS: 70250; 70450; 70496; 70498; 71045; 74018; 80053; 82947; 84484; 85025; 85610; 85730; 93005; 93010; 96361; 96374-59; 99284-25; J0780; J1200; J7030; Q9967

== ENCOUNTER → 2025-03-24 | Outpatient (CLI) | payer MEDICARE ==
[2025-03-24 19:31] LABS: Bacterial Vaginosis PCR Negative (NEGATIVE); Candida Group, PCR NOT DETECTED (NOT DETECT); Candida glabrata-krusei, PCR NOT DETECTED (NOT DETECT)
== END | disposition home or self-care (01) ==
LOC: LAB 17:35 → LAB SHORT 17:35
PROVIDERS: Family Medicine
DX: N76.0 Acute vaginitis (principal)
CPT/HCPCS: 81515

== ENCOUNTER 2025-06-07 09:43 | Emergency (ER) | payer MEDICARE ==
[~2025-06-07] VITALS: Ht 165.1 cm; Wt 86.2 kg
[2025-06-07 10:00] VITALS: BP 125/85
== END 2025-06-07 11:42 | disposition home or self-care (01) ==
LOC: ER 09:43
DX: R51.9 Headache, unspecified (principal); W19.XXXA Unspecified fall, initial encounter; I69.254 Hemiplegia and hemiparesis following other nontraumatic intracranial hemorrhage affecting left non-dominant side; Z88.5 Allergy status to narcotic agent; Z79.899 Other long term (current) drug therapy
CPT/HCPCS: 70450; 73080; 73562-LT; 99284-25; A9270

== ENCOUNTER 2025-06-21 18:37 | Emergency (ER) | payer MEDICARE ==
[~2025-06-21] VITALS: Ht 167.6 cm; Wt 90.7 kg
[2025-06-21 18:44] VITALS: BP 138/74
[2025-06-21 19:21] LABS: BASOPHILS ABSOLUTE AUTO 0.03 K/mm3 (0.00-0.23); BASOPHILS PERCENT AUTO 1 % (0-2); EOSINOPHILS ABSOLUTE AUTO 0.07 K/mm3 (0.00-0.68); EOSINOPHILS PERCENT AUTO 2 % (0-6); Hematocrit 35.1 % (33.0-51.0); Hemoglobin 12.2 g/dL (11.5-16.0); IMMATURE GRAN ABSOLUTE AUTO 0.01 K/mm3 (0.00-0.10); IMMATURE GRAN PERCENT AUTO 0 % (0-1); LYMPHOCYTES ABSOLUTE AUTO 1.31 K/mm3 (0.84-5.20); LYMPHOCYTES PERCENT AUTO 31 % (21-46); MONOCYTES ABSOLUTE AUTO 0.32 K/mm3 (0.16-1.47); MONOCYTES PERCENT AUTO 8 % (4-13); Mean Corpuscular HGB Conc 34.8 g/dL (31.5-36.5); Mean Corpuscular Volume 84 fL (80-100); NEUTROPHILS ABSOLUTE AUTO 2.52 K/mm3 (1.96-9.15); NEUTROPHILS PERCENT AUTO 59 % (41-73); NRBC ABSOLUTE 0.00 K/mm3 (0.00-0.02); NRBC Auto 0.0 /100 WBC (0.0-0.2); Platelet Count 212 K/mm3 (150-400); RDW Coefficient Variation 12.0 % (11.7-14.2); RDW Standard Deviation 36.8 fL (35.1-46.3)
[2025-06-21 20:10] LABS: Alanine Aminotransfer (ALT/SGP 41.0 U/L (12-78); Albumin, Blood 4.1 g/dL (3.4-5.0); Albumin/Globulin Ratio 1.4 (0.8-1.8); Anion Gap 9.0 mmol/L (3-11); Aspartate Aminotrans (AST/SGOT 20.0 U/L (12-37); Bilirubin, Total 0.3 mg/dL (0.1-1.0); Blood Urea Nitrogen 20.0 mg/dL (8-24); CO2, Blood 25.0 mmol/L (21-32); Calcium, Blood 9.0 mg/dL (8.5-10.1); Chloride, Blood 103.0 mmol/L (98-108); Creatinine, Blood 0.85 mg/dL (0.40-1.00); Globulin, Blood 3.0 g/dL (2.2-4.0); Glucose, Blood 109.0 mg/dL (70-99); Potassium, Blood 4.2 mmol/L (3.5-5.5); Sodium, Blood 133.0 mmol/L (136-145); Total Protein, Blood 7.1 g/dL (6.4-8.2)
[2025-06-21] MEDS ORDERED: RX Prepack 2 Tabs Ondansetron ODT 4MG UD ONE (21:05)
== END 2025-06-21 21:23 | disposition home or self-care (01) ==
LOC: ER 18:37
PROVIDERS: Emergency Medicine
DX: R51.9 Headache, unspecified (principal); Z86.73 Personal history of transient ischemic attack (TIA), and cerebral infarction without residual deficits; Z88.5 Allergy status to narcotic agent
CPT/HCPCS: 70450; 80053; 85025; 93005; 93010; 99284-25; A9270

== ENCOUNTER 2025-07-21 11:31 | Emergency (ER) | payer MEDICARE ==
[~2025-07-21] VITALS: Ht 165.1 cm; Wt 83.9 kg
[2025-07-21 11:42] VITALS: BP 132/79
[2025-07-21 12:04] LABS: BASOPHILS ABSOLUTE AUTO 0.06 K/mm3 (0.00-0.23); BASOPHILS PERCENT AUTO 2 % (0-2); EOSINOPHILS ABSOLUTE AUTO 0.07 K/mm3 (0.00-0.68); EOSINOPHILS PERCENT AUTO 2 % (0-6); Hematocrit 34.9 % (33.0-51.0); Hemoglobin 12.2 g/dL (11.5-16.0); IMMATURE GRAN ABSOLUTE AUTO 0.00 K/mm3 (0.00-0.10); IMMATURE GRAN PERCENT AUTO 0 % (0-1); LYMPHOCYTES ABSOLUTE AUTO 1.03 K/mm3 (0.84-5.20); LYMPHOCYTES PERCENT AUTO 29 % (21-46); MONOCYTES ABSOLUTE AUTO 0.31 K/mm3 (0.16-1.47); MONOCYTES PERCENT AUTO 9 % (4-13); Mean Corpuscular HGB Conc 35.0 g/dL (31.5-36.5); Mean Corpuscular Volume 84 fL (80-100); NEUTROPHILS ABSOLUTE AUTO 2.09 K/mm3 (1.96-9.15); NEUTROPHILS PERCENT AUTO 59 % (41-73); NRBC ABSOLUTE 0.00 K/mm3 (0.00-0.02); NRBC Auto 0.0 /100 WBC (0.0-0.2); Platelet Count 217 K/mm3 (150-400); RDW Coefficient Variation 12.2 % (11.7-14.2); RDW Standard Deviation 36.9 fL (35.1-46.3)
[2025-07-21 12:34] LABS: Alanine Aminotransfer (ALT/SGP 49.0 U/L (12-78); Albumin, Blood 3.8 g/dL (3.4-5.0); Albumin/Globulin Ratio 1.3 (0.8-1.8); Anion Gap 7.0 mmol/L (3-11); Aspartate Aminotrans (AST/SGOT 25.0 U/L (12-37); Bilirubin, Total 0.5 mg/dL (0.1-1.0); Blood Urea Nitrogen 17.0 mg/dL (8-24); CO2, Blood 25.0 mmol/L (21-32); Calcium, Blood 9.2 mg/dL (8.5-10.1); Chloride, Blood 109.0 mmol/L (98-108); Creatinine, Blood 1.04 mg/dL (0.40-1.00); Globulin, Blood 2.9 g/dL (2.2-4.0); Glucose, Blood 120.0 mg/dL (70-99); Potassium, Blood 4.4 mmol/L (3.5-5.5); Sodium, Blood 137.0 mmol/L (136-145); Total Protein, Blood 6.7 g/dL (6.4-8.2)
== END 2025-07-21 14:48 | disposition left against medical advice (07) ==
LOC: ER 11:31
PROVIDERS: Emergency Medicine
DX: R51.9 Headache, unspecified (principal); Z98.2 Presence of cerebrospinal fluid drainage device; Z79.899 Other long term (current) drug therapy; Z88.5 Allergy status to narcotic agent
CPT/HCPCS: 70250; 70450; 71045; 74018; 80053; 85025; 99284-25; A9270

== ENCOUNTER 2025-08-19 15:39 | Emergency (ER) | payer MEDICARE ==
[~2025-08-19] VITALS: Ht 160 cm; Wt 87.5 kg
[2025-08-19 16:16] LABS: BASOPHILS ABSOLUTE AUTO 0.03 K/mm3 (0.00-0.23); BASOPHILS PERCENT AUTO 1 % (0-2); EOSINOPHILS ABSOLUTE AUTO 0.11 K/mm3 (0.00-0.68); EOSINOPHILS PERCENT AUTO 2 % (0-6); Hematocrit 31.7 % (33.0-51.0); Hemoglobin 11.8 g/dL (11.5-16.0); IMMATURE GRAN ABSOLUTE AUTO 0.02 K/mm3 (0.00-0.10); IMMATURE GRAN PERCENT AUTO 0 % (0-1); LYMPHOCYTES ABSOLUTE AUTO 1.18 K/mm3 (0.84-5.20); LYMPHOCYTES PERCENT AUTO 26 % (21-46); MONOCYTES ABSOLUTE AUTO 0.33 K/mm3 (0.16-1.47); MONOCYTES PERCENT AUTO 7 % (4-13); Mean Corpuscular HGB Conc 37.2 g/dL (31.5-36.5); Mean Corpuscular Volume 81 fL (80-100); NEUTROPHILS ABSOLUTE AUTO 2.84 K/mm3 (1.96-9.15); NEUTROPHILS PERCENT AUTO 63 % (41-73); NRBC ABSOLUTE 0.00 K/mm3 (0.00-0.02); NRBC Auto 0.0 /100 WBC (0.0-0.2); Platelet Count 219 K/mm3 (150-400); RDW Coefficient Variation 11.8 % (11.7-14.2); RDW Standard Deviation 34.3 fL (35.1-46.3)
[2025-08-19 17:05] LABS: Alanine Aminotransfer (ALT/SGP 36.0 U/L (12-78); Albumin, Blood 3.8 g/dL (3.4-5.0); Albumin/Globulin Ratio 1.3 (0.8-1.8); Anion Gap 8.0 mmol/L (3-11); Aspartate Aminotrans (AST/SGOT 26.0 U/L (12-37); Bilirubin, Total 0.5 mg/dL (0.1-1.0); Blood Urea Nitrogen 21.0 mg/dL (8-24); CO2, Blood 26.0 mmol/L (21-32); Calcium, Blood 8.5 mg/dL (8.5-10.1); Chloride, Blood 96.0 mmol/L (98-108); Creatinine, Blood 0.77 mg/dL (0.40-1.00); Globulin, Blood 2.9 g/dL (2.2-4.0); Glucose, Blood 122.0 mg/dL (70-99); Potassium, Blood 4.2 mmol/L (3.5-5.5); Sodium, Blood 126.0 mmol/L (136-145); Total Protein, Blood 6.7 g/dL (6.4-8.2)
[2025-08-19] MEDS ORDERED: NS 1,000 ML IV ONE (19:42)
[2025-08-19 19:45] VITALS: BP 139/80
== END 2025-08-19 20:52 | disposition home or self-care (01) ==
LOC: ER 15:39
PROVIDERS: Student in an Organized Health Care Education/Training Program
DX: G45.9 Transient cerebral ischemic attack, unspecified (principal); Z79.899 Other long term (current) drug therapy; Z88.5 Allergy status to narcotic agent
CPT/HCPCS: 70450; 70496; 70498; 80053; 85025; 93005; 93010; 99285-25; J7030; Q9967

== ENCOUNTER 2025-08-21 16:27 | Inpatient (IN) | payer MEDICARE ==
[~2025-08-21] VITALS: Ht 167.6 cm; Wt 46.6 kg
[2025-08-21 17:33] LABS: Alanine Aminotransfer (ALT/SGP 32.0 U/L (12-78); Albumin, Blood 3.9 g/dL (3.4-5.0); Albumin/Globulin Ratio 1.4 (0.8-1.8); Anion Gap 12.0 mmol/L (3-11); Aspartate Aminotrans (AST/SGOT 18.0 U/L (12-37); Bilirubin, Total 0.7 mg/dL (0.1-1.0); Blood Urea Nitrogen 14.0 mg/dL (8-24); CO2, Blood 23.0 mmol/L (21-32); Calcium, Blood 8.8 mg/dL (8.5-10.1); Chloride, Blood 90.0 mmol/L (98-108); Creatinine, Blood 0.58 mg/dL (0.40-1.00); Globulin, Blood 2.8 g/dL (2.2-4.0); Glucose, Blood 106.0 mg/dL (70-99); Potassium, Blood 3.7 mmol/L (3.5-5.5); Sodium, Blood 121.0 mmol/L (136-145); Total Protein, Blood 6.7 g/dL (6.4-8.2)
[2025-08-21] MEDS ORDERED: Prochlorperazine Edisylate 10 mg Vial IV ONE (17:35)
[2025-08-21] MEDS ORDERED: NS 1,000 ML IV SCH ×2 (17:35→21:35)
[2025-08-21] MEDS ORDERED: DiphenhydrAMINE HCl 50 MG/ML 1ML Vial IV ONE (17:35)
[2025-08-21 17:43] LABS: BASOPHILS ABSOLUTE AUTO 0.03 K/mm3 (0.00-0.23); BASOPHILS PERCENT AUTO 1 % (0-2); EOSINOPHILS ABSOLUTE AUTO 0.06 K/mm3 (0.00-0.68); EOSINOPHILS PERCENT AUTO 1 % (0-6); Hematocrit 31.5 % (33.0-51.0); IMMATURE GRAN ABSOLUTE AUTO 0.03 K/mm3 (0.00-0.10); IMMATURE GRAN PERCENT AUTO 1 % (0-1); LYMPHOCYTES ABSOLUTE AUTO 0.84 K/mm3 (0.84-5.20); LYMPHOCYTES PERCENT AUTO 17 % (21-46); MONOCYTES ABSOLUTE AUTO 0.34 K/mm3 (0.16-1.47); MONOCYTES PERCENT AUTO 7 % (4-13); Mean Corpuscular Volume 77 fL (80-100); NEUTROPHILS ABSOLUTE AUTO 3.63 K/mm3 (1.96-9.15); NEUTROPHILS PERCENT AUTO 74 % (41-73); NRBC ABSOLUTE 0.00 K/mm3 (0.00-0.02); NRBC Auto 0.0 /100 WBC (0.0-0.2); Platelet Count 220 K/mm3 (150-400); RDW Coefficient Variation 11.7 % (11.7-14.2); RDW Standard Deviation 32.1 fL (35.1-46.3)
[2025-08-21 17:53] LABS: Prothrombin Time Results 10.6 Sec (9.7-11.5)
[2025-08-21 18:01] LABS: Influenza A, PCR NEGATIVE (NEGATIVE); Influenza B, PCR NEGATIVE (NEGATIVE); Resp Syncytial Virus, PCR NEGATIVE (NEGATIVE); SARS-Cov-2 (COVID-19) PCR, MMC NEGATIVE (NEGATIVE)
[2025-08-21] MEDS ORDERED: Morphine Sulfate 4 MG/1 ML Injection IV ONE (18:05)
[2025-08-21] MEDS ORDERED: Oxymetazoline 0.05% Nasal Relief Spray 15mL BTL ONE (18:20)
[2025-08-21] MEDS ORDERED: FLU VACC TS2025-26(6MOS UP)/PF 45 MCG/0.5 ML SYRINGE IM SCH (21:30)
[2025-08-21] MEDS ORDERED: Ondansetron HCl 2 MG / ML 2ML Vial IV PRN (21:35)
[2025-08-21 22:40] LABS: Osmolality, Serum 254.0 mos/KG (275-300)
[2025-08-21 22:50] LABS: Sodium, Blood 123.0 mmol/L (136-145); Thyroid Stimulating Hormone 0.793 uIU/mL (0.360-4.800)
[2025-08-21 22:55] VITALS: BP 136/67
[2025-08-22] MEDS ORDERED: BUSP10 PO (00:16)
[2025-08-22] MEDS ORDERED: PANT20 PO (00:17)
[2025-08-22] MEDS ORDERED: LOSA50 PO (00:17)
[2025-08-22] MEDS ORDERED: SERT50 PO (00:18)
[2025-08-22] MEDS ORDERED: LEVE500 PO (00:20)
[2025-08-22 04:46] VITALS: BP 126/70
[2025-08-22 06:15] LABS: Anion Gap 7.0 mmol/L (3-11); Blood Urea Nitrogen 11.0 mg/dL (8-24); CO2, Blood 25.0 mmol/L (21-32); Calcium, Blood 8.6 mg/dL (8.5-10.1); Chloride, Blood 97.0 mmol/L (98-108); Creatinine, Blood 0.71 mg/dL (0.40-1.00); Glucose, Blood 85.0 mg/dL (70-99); Potassium, Blood 3.3 mmol/L (3.5-5.5); Sodium, Blood 126.0 mmol/L (136-145)
--- NOTE | 2025-08-22 06:26 | NUR ---
ADMISSION AND SHIFT SUMMARY ASSUMED CARE AT 2240. A/Ox4, VSS ON RA. TELE, NSR. UP TO BEDSIDE COMMODE WITH 1P ASSIST, VOIDING 6 TIMES OVERNIGHT. L SIDED WEAKNESS AND LIMITED VISION AT L EYE NOTED. PT ANXIOUS AT TIMES, REDIRECTABLE. DENIES PAIN, NAUSEA, SOB. USES 4-POINT CANE AT BASELINE. NS AT 75 ML/HR. SAFETY PRECAUTIONS IN PLACE, CALL LIGHT IN REACH.
[2025-08-22 07:10] VITALS: BP 130/68
[2025-08-22 11:13] VITALS: BP 114/69
[2025-08-22 11:41] LABS: BASOPHILS ABSOLUTE AUTO 0.03 K/mm3 (0.00-0.23); BASOPHILS PERCENT AUTO 1 % (0-2); EOSINOPHILS ABSOLUTE AUTO 0.09 K/mm3 (0.00-0.68); EOSINOPHILS PERCENT AUTO 2 % (0-6); Hematocrit 28.9 % (33.0-51.0); Hemoglobin 10.7 g/dL (11.5-16.0); IMMATURE GRAN ABSOLUTE AUTO 0.02 K/mm3 (0.00-0.10); IMMATURE GRAN PERCENT AUTO 0 % (0-1); LYMPHOCYTES ABSOLUTE AUTO 1.13 K/mm3 (0.84-5.20); LYMPHOCYTES PERCENT AUTO 21 % (21-46); MONOCYTES ABSOLUTE AUTO 0.50 K/mm3 (0.16-1.47); MONOCYTES PERCENT AUTO 10 % (4-13); Mean Corpuscular HGB Conc 37.0 g/dL (31.5-36.5); Mean Corpuscular Volume 81 fL (80-100); NEUTROPHILS ABSOLUTE AUTO 3.50 K/mm3 (1.96-9.15); NEUTROPHILS PERCENT AUTO 66 % (41-73); NRBC ABSOLUTE 0.00 K/mm3 (0.00-0.02); NRBC Auto 0.0 /100 WBC (0.0-0.2); Platelet Count 192 K/mm3 (150-400); RDW Coefficient Variation 12.0 % (11.7-14.2); RDW Standard Deviation 35.2 fL (35.1-46.3)
[2025-08-22 15:08] VITALS: BP 123/67
--- NOTE | 2025-08-22 15:59 | NUR ---
PATIENT VOMITED 150CC ZOFRAN GIVEN. PATIENT DENIED SOB OR CP . STATES SLIGHT PRESSLEY.
[2025-08-22 16:41] LABS: Anion Gap 7.0 mmol/L (3-11); Blood Urea Nitrogen 11.0 mg/dL (8-24); CO2, Blood 25.0 mmol/L (21-32); Calcium, Blood 8.7 mg/dL (8.5-10.1); Chloride, Blood 102.0 mmol/L (98-108); Creatinine, Blood 0.76 mg/dL (0.40-1.00); Glucose, Blood 113.0 mg/dL (70-99); Magnesium, Blood 2.1 mg/dL (1.6-2.4); Potassium, Blood 4.1 mmol/L (3.5-5.5); Sodium, Blood 130.0 mmol/L (136-145)
[2025-08-22 19:12] VITALS: BP 121/59
[2025-08-22 23:36] VITALS: BP 142/88
[2025-08-23 03:03] VITALS: BP 136/79
[2025-08-23 06:25] LABS: BASOPHILS ABSOLUTE AUTO 0.03 K/mm3 (0.00-0.23); BASOPHILS PERCENT AUTO 1 % (0-2); EOSINOPHILS ABSOLUTE AUTO 0.08 K/mm3 (0.00-0.68); EOSINOPHILS PERCENT AUTO 2 % (0-6); Hematocrit 30.0 % (33.0-51.0); Hemoglobin 11.0 g/dL (11.5-16.0); IMMATURE GRAN ABSOLUTE AUTO 0.02 K/mm3 (0.00-0.10); IMMATURE GRAN PERCENT AUTO 1 % (0-1); LYMPHOCYTES ABSOLUTE AUTO 1.03 K/mm3 (0.84-5.20); LYMPHOCYTES PERCENT AUTO 24 % (21-46); MONOCYTES ABSOLUTE AUTO 0.38 K/mm3 (0.16-1.47); MONOCYTES PERCENT AUTO 9 % (4-13); Mean Corpuscular HGB Conc 36.7 g/dL (31.5-36.5); Mean Corpuscular Volume 80 fL (80-100); NEUTROPHILS ABSOLUTE AUTO 2.73 K/mm3 (1.96-9.15); NEUTROPHILS PERCENT AUTO 64 % (41-73); NRBC ABSOLUTE 0.00 K/mm3 (0.00-0.02); NRBC Auto 0.0 /100 WBC (0.0-0.2); Platelet Count 202 K/mm3 (150-400); RDW Coefficient Variation 12.3 % (11.7-14.2); RDW Standard Deviation 35.4 fL (35.1-46.3)
[2025-08-23 06:51] LABS: Alanine Aminotransfer (ALT/SGP 34.0 U/L (12-78); Albumin, Blood 3.5 g/dL (3.4-5.0); Albumin/Globulin Ratio 1.2 (0.8-1.8); Anion Gap 6.0 mmol/L (3-11); Aspartate Aminotrans (AST/SGOT 15.0 U/L (12-37); Bilirubin, Total 0.5 mg/dL (0.1-1.0); Blood Urea Nitrogen 10.0 mg/dL (8-24); CO2, Blood 27.0 mmol/L (21-32); Calcium, Blood 8.6 mg/dL (8.5-10.1); Chloride, Blood 102.0 mmol/L (98-108); Creatinine, Blood 0.7 mg/dL (0.40-1.00); Globulin, Blood 2.8 g/dL (2.2-4.0); Glucose, Blood 98.0 mg/dL (70-99); Magnesium, Blood 1.9 mg/dL (1.6-2.4); Potassium, Blood 3.7 mmol/L (3.5-5.5); Sodium, Blood 131.0 mmol/L (136-145); Total Protein, Blood 6.3 g/dL (6.4-8.2)
[2025-08-23 07:02] VITALS: BP 125/72
--- NOTE | 2025-08-23 07:10 | NUR ---
SHIFT SUMMARY; PT A/OX3- HAS INTERMITTENT EPISODES OF CONFUSION, HOWEVER REDIRECTABLE. PT INTERMITTENTLY EMOTIONAL THROUGHOUT THE NIGHT W/ BOUGHTS OF CRYING. PT MEDICATED PER EMAR. PT OUT OF BED FREQUENTLY TO BEDSIDE COMMODE WITH URINARY URGENCY APPROX EVERY 30 MINS-1HR. URINE APPEARS CLEAR LIGHT YELLOW WITH NO ODOR. OFFERED PT PUREWICK, HOWEVER PT DOES NOT LIKE THE FEELING OF PUREWICK IN PLACE. R WRIST IV D/C DUE TO LEAKAGE. 2 NEW IVS PLACED- L AC AND R HAND. NA SERUM LEVEL AT 130 FROM LATEST BLOOD RESULT. PER BETH TURCIOS, PT TO HAVE CONTINUOUS IV FLUIDS AT 75 ML/HOUR AND IS TO BE ON A PO FLUID RESTRICTION OF 1200ML. NS CURRENTLY RUNNING INTO R WRIST IV. PT GIVEN 1 DOSE OF TRAMADOL DUE TO 7/10 PAIN IN THE BACK OF HER HEAD. PT STATES THIS IS WHERE HER HEADACHES USUALLY OCCUR. POST MEDICATION PAIN LEVEL AT 4/10. PT ON RA WITH INTERMITTENT DRY COUGH. PT ON TELE- NSR W/ 1 DEGREE BLOCK AT 69 BPM. VSS. BED IN LOW POSITION. CALL LIGHT WITHIN REACH.
[2025-08-23 11:01] VITALS: BP 120/84
[2025-08-23 14:58] LABS: Source, Urine Clean Catch
[2025-08-23 15:01] LABS: Bilirubin, Urine Neg (Neg); Color, Urine Yellow (P-Yellow); Glucose Qualitative, Urine Neg (Neg); Ketones, Urine Neg (Neg); Leukocyte Esterase, Urine 3+ (Neg); Protein, Urine 1+ (Neg); Specific Gravity, Urine 1.020 (1.003-1.022); Urobilinogen, Urine NORM (Normal)
[2025-08-23 15:17] VITALS: BP 128/69
[2025-08-23 15:23] LABS: Red Blood Cells, Urine 0-2 /hpf (0-2)
--- NOTE | 2025-08-23 17:02 | NUR ---
SHIFT SUMMARY PT A&OX3-4 W/ CONT CONFUSION AND IMPULSIVITY MANAGED W/ ALARM, VSS, AMB W/ ASSIST, TOLERATING PO, VOIDING FREQUENTLY, AND CONT TO C/O H/A THAT WAS MEDICATED PER EMAR. PT WORKED W/ PHYSICAL AND OCCUPATIONAL THERAPY, SEE THERAPY NOTES. PT ABLE TO WALK THE BALL AND TOLERATED IT WELL. NOTIFIED OF CONT C/O H/A AND URINE FREQUENCY. UA ORDERED AND CULTURE PENDING. NO OTHER ACUTE CHANGES. CALL LIGHT WITHIN REACH AND BED ALARM ON FOR SAFETY.
[2025-08-23] MEDS ORDERED: HYDROmorphone HCl/Pf 1MG SYR IV PRN (17:30)
[2025-08-23] MEDS ORDERED: CefTRIAXone Sodium 1,000 MG in NS 100 ML IV SCH (18:00)
[2025-08-23 19:10] VITALS: BP 143/74
[2025-08-23] MEDS ORDERED: Prochlorperazine Edisylate 10 mg Vial IV PRN (19:30)
[2025-08-23] MEDS ORDERED: Lactobacil 2-S.Thermo-Bifido 1 1 Cap PO SCH (21:00)
[2025-08-24 00:19] VITALS: BP 132/78
[2025-08-24 04:31] VITALS: BP 131/72
--- NOTE | 2025-08-24 04:56 | NUR ---
SHIFT SUMMARY PATIENT ALERT AND ORIENTED X4. PATIENT REMAINED PLEASANT AND RECEPTIVE DURING CARE. DOES NOT USE HER CALL LIGHT WHEN SHE NEEDS TO USE THE BATHROOM. COMPLAINT OF HEADACHE, MEDICATED PER EMAR. BED ALARM ACTIVATED . NO ACUTE CHANGES DURING THIS SHIFT AND VITAL SIGNS STABLE. NORMAL SALINE INFUSING AT 75 ML/HR. SELF-REPOSITIONED THROUGHOUT THE SHIFT. BED LOCKED AND IN LOWEST POSITION. CALL LIGHT WITHIN REACH.
[2025-08-24 05:19] LABS: BASOPHILS ABSOLUTE AUTO 0.03 K/mm3 (0.00-0.23); BASOPHILS PERCENT AUTO 1 % (0-2); EOSINOPHILS ABSOLUTE AUTO 0.10 K/mm3 (0.00-0.68); EOSINOPHILS PERCENT AUTO 3 % (0-6); Hematocrit 29.8 % (33.0-51.0); Hemoglobin 10.7 g/dL (11.5-16.0); IMMATURE GRAN ABSOLUTE AUTO 0.02 K/mm3 (0.00-0.10); IMMATURE GRAN PERCENT AUTO 1 % (0-1); LYMPHOCYTES ABSOLUTE AUTO 0.92 K/mm3 (0.84-5.20); LYMPHOCYTES PERCENT AUTO 25 % (21-46); MONOCYTES ABSOLUTE AUTO 0.41 K/mm3 (0.16-1.47); MONOCYTES PERCENT AUTO 11 % (4-13); Mean Corpuscular HGB Conc 35.9 g/dL (31.5-36.5); Mean Corpuscular Volume 83 fL (80-100); NEUTROPHILS ABSOLUTE AUTO 2.21 K/mm3 (1.96-9.15); NEUTROPHILS PERCENT AUTO 60 % (41-73); NRBC ABSOLUTE 0.00 K/mm3 (0.00-0.02); NRBC Auto 0.0 /100 WBC (0.0-0.2); Platelet Count 202 K/mm3 (150-400); RDW Coefficient Variation 12.4 % (11.7-14.2); RDW Standard Deviation 37.2 fL (35.1-46.3)
[2025-08-24 05:51] LABS: Alanine Aminotransfer (ALT/SGP 28.0 U/L (12-78); Albumin, Blood 3.2 g/dL (3.4-5.0); Albumin/Globulin Ratio 1.3 (0.8-1.8); Anion Gap 6.0 mmol/L (3-11); Aspartate Aminotrans (AST/SGOT 14.0 U/L (12-37); Bilirubin, Total 0.3 mg/dL (0.1-1.0); Blood Urea Nitrogen 9.0 mg/dL (8-24); CO2, Blood 28.0 mmol/L (21-32); Calcium, Blood 8.5 mg/dL (8.5-10.1); Chloride, Blood 105.0 mmol/L (98-108); Creatinine, Blood 0.71 mg/dL (0.40-1.00); Globulin, Blood 2.5 g/dL (2.2-4.0); Glucose, Blood 97.0 mg/dL (70-99); Magnesium, Blood 1.8 mg/dL (1.6-2.4); Potassium, Blood 3.8 mmol/L (3.5-5.5); Sodium, Blood 135.0 mmol/L (136-145); Total Protein, Blood 5.7 g/dL (6.4-8.2)
[2025-08-24 07:15] VITALS: BP 120/70
[2025-08-24] MEDS ORDERED: CEPH500 PO (17:28)
[2025-08-24] MEDS ORDERED: LACT PO (17:28)
[2025-08-24] MEDS ORDERED: ACET500 PO (17:32)
--- NOTE | 2025-08-24 17:57 | NUR ---
DISCHARGE NOTE PT DISCHARGED WITH HOME HEALTH AND OUT PATIENT THERAPY. VSS, PT TOLERATING PO INTAKE, AMBULATING WITH CANE. DISCHARGE EDUCATION PROVIDED VERBALLY AND WRITTEN TO PT. PT VERBALIZED AN UNDERSTANDING. NEW MEDICATIONS FAXED TO [facility]. ALL PT BELONGINGS TAKEN WITH PT. SCRIPT FOR FWW ALSO GIVEN TO PT. PT TO DRIVE PT HOME.
== END 2025-08-24 18:04 | disposition home health service (06) | DRG 641 ==
LOC: ER 16:27 → MEDS 16:28
PROVIDERS: Emergency Medicine; Family Medicine; Nurse Practitioner Acute Care; ADMIT Internal Medicine
DX: E87.1 Hypo-osmolality and hyponatremia (principal); I62.9 Nontraumatic intracranial hemorrhage, unspecified; N39.0 Urinary tract infection, site not specified; G43.909 Migraine, unspecified, not intractable, without status migrainosus; R29.810 Facial weakness; E87.8 Other disorders of electrolyte and fluid balance, not elsewhere classified; I48.0 Paroxysmal atrial fibrillation; I10 Essential (primary) hypertension; F41.9 Anxiety disorder, unspecified; E87.6 Hypokalemia; R53.1 Weakness; Z79.899 Other long term (current) drug therapy; Z79.891 Long term (current) use of opiate analgesic; Z86.73 Personal history of transient ischemic attack (TIA), and cerebral infarction without residual deficits; Z98.890 Other specified postprocedural states; Z98.2 Presence of cerebrospinal fluid drainage device; Z88.5 Allergy status to narcotic agent
CPT/HCPCS: 36415; 70250; 70450; 70496; 70498; 71045; 74018; 80048; 80053; 81001; 83735; 83930; 83935; 84295; 84300; 84443; 84484; 85025; 85610; 85730; 87086; 87147; 87637; 93005; 93010; 96361; 96365; 96366; 96374; 96375; 97110; 97116; 97161; 97165; 97530; 97535; 99285-25; A9270; G0378; J0696; J0780; J1200; J2270; J2405; J2470; J3480; J7030; Q9967

== ENCOUNTER → 2025-10-25 | Outpatient (CLI) | payer MEDICARE ==
[~2025-10-25] MED LIST changes: +ACET500 PO; +BUSP10 PO; +CEPH500 PO; +LACT PO; +LEVE500 PO; +LOSA50 PO; +PANT20 PO; +SERT50 PO
[2025-10-25 11:00] LABS: BASOPHILS ABSOLUTE AUTO 0.05 K/mm3 (0.00-0.23); BASOPHILS PERCENT AUTO 1 % (0-2); EOSINOPHILS ABSOLUTE AUTO 0.09 K/mm3 (0.00-0.68); EOSINOPHILS PERCENT AUTO 2 % (0-6); Hematocrit 35.8 % (33.0-51.0); Hemoglobin 12.2 g/dL (11.5-16.0); IMMATURE GRAN ABSOLUTE AUTO 0.01 K/mm3 (0.00-0.10); IMMATURE GRAN PERCENT AUTO 0 % (0-1); LYMPHOCYTES ABSOLUTE AUTO 0.94 K/mm3 (0.84-5.20); LYMPHOCYTES PERCENT AUTO 22 % (21-46); MONOCYTES ABSOLUTE AUTO 0.40 K/mm3 (0.16-1.47); MONOCYTES PERCENT AUTO 9 % (4-13); Mean Corpuscular HGB Conc 34.1 g/dL (31.5-36.5); Mean Corpuscular Volume 86 fL (80-100); NEUTROPHILS ABSOLUTE AUTO 2.84 K/mm3 (1.96-9.15); NEUTROPHILS PERCENT AUTO 66 % (41-73); NRBC ABSOLUTE 0.00 K/mm3 (0.00-0.02); NRBC Auto 0.0 /100 WBC (0.0-0.2); Platelet Count 220 K/mm3 (150-400); RDW Coefficient Variation 12.4 % (11.7-14.2); RDW Standard Deviation 39.0 fL (35.1-46.3)
[2025-10-25 11:12] LABS: Alanine Aminotransfer (ALT/SGP 31.0 U/L (12-78); Albumin, Blood 3.7 g/dL (3.4-5.0); Albumin/Globulin Ratio 1.2 (0.8-1.8); Anion Gap 12.0 mmol/L (3-11); Aspartate Aminotrans (AST/SGOT 18.0 U/L (12-37); Bilirubin, Total 0.4 mg/dL (0.1-1.0); Blood Urea Nitrogen 17.0 mg/dL (8-24); CO2, Blood 28.0 mmol/L (21-32); Calcium, Blood 9.0 mg/dL (8.5-10.1); Chloride, Blood 110.0 mmol/L (98-108); Creatinine, Blood 0.96 mg/dL (0.40-1.00); Globulin, Blood 3.1 g/dL (2.2-4.0); Glucose, Blood 135.0 mg/dL (70-99); Potassium, Blood 4.1 mmol/L (3.5-5.5); Sodium, Blood 146.0 mmol/L (136-145); Total Protein, Blood 6.8 g/dL (6.4-8.2)
== END | disposition home or self-care (01) ==
LOC: LAB SHORT 10:56 → LAB 10:56
PROVIDERS: Physician Assistant
DX: R60.0 Localized edema (principal)
CPT/HCPCS: 80053; 83880; 85025; 85379

== ENCOUNTER 2025-11-22 13:46 | Emergency (ER) | payer MEDICARE ==
[~2025-11-22] VITALS: Ht 165.1 cm; Wt 83.9 kg
[2025-11-22 19:57] VITALS: BP 152/78
== END 2025-11-22 19:58 | disposition home or self-care (01) ==
LOC: ER 13:46
DX: S09.90XA Unspecified injury of head, initial encounter (principal); X58.XXXA Exposure to other specified factors, initial encounter; Z87.820 Personal history of traumatic brain injury; Z79.899 Other long term (current) drug therapy; Z88.5 Allergy status to narcotic agent
CPT/HCPCS: 70450; 70551; 99283-25